=== PATIENT | male | born 1955 | race Caucasian/White ===

== ENCOUNTER → 2021-12-25 | Outpatient (CLI) | payer MEDICARE, OTHER ==
[2021-12-25 17:20] LABS: Color,BF Yellow
[2021-12-25 17:21] LABS: Appearance,BF Hazy; Nucleated Cells, Body Fluid 160 /uL; RBC, Body Fluid 990 /uL
[2021-12-25 17:42] LABS: Mononuclear WBC,Body Fluid 99 %; Polynuclear WBC,Body Fluid 1 %; Total Cells Counted,Body Fluid 100
[2021-12-25 23:33] LABS: HCT 45.1 % (39.6-50.0); HGB 15.2 g/dL (13.0-17.0); MCH 29.2 pg (27.0-32.0); MCHC 33.7 g/dL (32.0-37.0); MCV 86.6 fL (80.0-97.0); Mean Platelet Volume 11.6 fL (9.5-12.2); NRBC Per 100 WBC 0 /100 WBCS (0.0-0.0); Platelet Count 156 X 10*3/uL (140-440); RBC 5.21 X 10*6/uL (4.40-5.60); RDW 12.9 % (11.5-14.5); WBC 7.11 X 10*3/uL (4.50-10.00)
[2021-12-25 23:34] LABS: Streptolysin O Ab(ASO) 91 IU/L (0-200)
[2021-12-25 23:46] LABS: C Reactive Protein <0.30 mg/dL (0.00-0.80); Rheumatoid Factor, Qnt <10 IU/mL (0-15)
[2021-12-25 23:56] LABS: Erythrocyte Sedimentation Rate 4 mm/Hr (0-20)
[2021-12-26 02:41] LABS: Synovial Fld Crystals None Seen (None Seen)
[2021-12-26 14:18] LABS: HLA B27 NEGATIVE
== END | disposition home or self-care (01) ==
LOC: LABWHC1 16:03
PROVIDERS: ATTEND Orthopaedic Surgery
DX: M10.062 Idiopathic gout, left knee (principal)
CPT/HCPCS: 36415; 83520; 84443; 85027; 85652; 86038; 86039; 86060; 86140; 86431; 86618; 86812; 87070; 87075; 87205; 89050; 89060

== ENCOUNTER → 2022-06-11 | Outpatient (CLI) | payer OTHER, MEDICARE ==
--- NOTE | 2022-06-11 10:15 | US ---
EXAMINATION TYPE: US venous doppler duplex LE DATE OF EXAM: 06/11/2022 10:05 AM COMPARISON: NONE CLINICAL HISTORY: I80.9 PHLEBITIS AND THROMBOPHLEBITIS OF UNSP. left knee pain SIDE PERFORMED: left TECHNIQUE: The lower extremity deep venous system is examined utilizing real time linear array sonog renard with graded compression, doppler sonography and color-flow sonography. VESSELS IMAGED: Common Femoral Vein Deep Femoral Vein Greater Saphenous Vein * Femoral Vein Popliteal Vein Small Saphenous Vein * Proximal Calf Veins (* superficial vessels) Left Leg: negative for LLE dvt; results called to Vale in the office at the time of the exam. IMPRESSION: 1. Left lower extremity ultrasound negative for deep venous thrombosis.
== END | disposition home or self-care (01) ==
LOC: RADUSWWP 09:43
PROVIDERS: ATTEND Orthopaedic Surgery
DX: I80.3 Phlebitis and thrombophlebitis of lower extremities, unspecified (principal); M17.12 Unilateral primary osteoarthritis, left knee; M25.562 Pain in left knee

== ENCOUNTER 2024-09-06 07:56 | Inpatient (IN) | payer MEDICARE, OTHER ==
[2024-09-06 16:03] VITALS: BMI 36.2
[2024-09-12] MEDS ORDERED: HYDROmorphone 0.5 MG/0.5 ML SYRINGE IVP PRN ×2 (07:00→10:26)
[2024-09-12] MEDS ORDERED: fentaNYL (PF) 50 MCG/ML 2 ML AMP IV PRN (07:00)
[2024-09-12] MEDS: IV FLUID CONTINUATION 1,000 ML IV ONE ×4 (07:05→11:19)
[2024-09-12] MEDS: LIDOCAINE 1% (10MG/ML) FOR IV START INTRADERMA PRN (07:05)
[2024-09-12] MEDS: LACTATED RINGERS 1,000 ML IV SCH (07:05)
[2024-09-12] MEDS: FAMOTIDINE 20 MG/2 ML VIAL IV STA (07:20)
[2024-09-12] MEDS: ONDANSETRON 4 MG/2 ML VIAL IVP ONE (07:20)
[2024-09-12] MEDS ORDERED: LIDOCAINE 1% INJ 10MG/ML (20 ML MDV) ONE (07:26)
[2024-09-12] MEDS ORDERED: ROCURONIUM 10 MG/ML (5 ML VIAL) IV ONE (07:26)
[2024-09-12] MEDS ORDERED: SUCCINYLCHOLINE CHLORIDE 200 MG/10 ML VIAL IV ONE (07:26)
[2024-09-12] MEDS ORDERED: HYDROmorphone (PF) 1 MG/ML ONE (07:26)
[2024-09-12] MEDS ORDERED: MIDAZOLAM 2 MG/2 ML VIAL ONE (07:26)
[2024-09-12] MEDS ORDERED: fentaNYL (PF) 50 MCG/ML 2 ML AMP ONE (07:26)
[2024-09-12] MEDS ORDERED: ePHEDrine 50 MG/ML 1 ML VIAL ONE (07:26)
[2024-09-12] MEDS ORDERED: PROPOFOL 10 MG/ML 20 ML VIAL IV ONE (07:26)
[2024-09-12] MEDS ORDERED: DEXAMETHASONE SOD PHOSPHATE 10 MG/ML 1 ML VIAL ONE (07:26)
[2024-09-12] MEDS: ceFAZolin 3 GM in SODIUM CHLORIDE 0.9% 100 ML IVPB PRN (07:30)
[2024-09-12] MEDS: ceFAZolin 1,000 MG in SODIUM CHLORIDE 0.9% IRRIGATIO 1,000 ML IRRIGATION PRN (07:30)
[2024-09-12] MEDS: THROMBIN (BOVINE) 5,000 UNIT VIAL MISCELLANE ONE (08:03)
[2024-09-12] MEDS: BUPIVACAINE (PF) 0.25% 30 ML VIAL SQ ONE (08:03)
[2024-09-12] MEDS: LIDOCAINE 2%-EPI 1:100,000 20 ML VIAL SQ ONE (08:03)
--- NOTE | 2024-09-12 09:02 | XR ---
EXAMINATION TYPE: XR cervical spine 1V DATE OF EXAM: 09/12/2024 8:47 AM COMPARISON: None CLINICAL INDICATION: Male, 68 years old with history of Needle Placement; PHH, pain TECHNIQUE: XR cervical spine 1V, (1-2) views of the cervical spine FINDINGS: Surgical instrument pointing at the C4-C5 disc space support tube in place. No evidence for fracture. IMPRESSION: 1. No fracture or dislocation. 2. Surgical instrument pointing at the C4-C5 disc space [facility], , 09/12/2024 9:00 AM
[2024-09-12] MEDS ORDERED: BENZOCAINE/MENTHOL LOZENG 1 EACH LOZENGE MUCOUS MEM PRN (10:26)
[2024-09-12] MEDS ORDERED: HYDROmorphone 2 MG/ML 1 ML SYRINGE IVP PRN (10:26)
[2024-09-12] MEDS ORDERED: ONDANSETRON 4 MG/2 ML VIAL IVP PRN (10:27)
--- NOTE | 2024-09-12 10:28 | XR ---
EXAMINATION TYPE: XR cervical spine 1V DATE OF EXAM: 09/12/2024 10:20 AM COMPARISON: Same day CLINICAL INDICATION: Male, 68 years old with history of HARDWARE PLACEMENT; PHH, pain TECHNIQUE: XR cervical spine 1V, (1-2) views of the cervical spine FINDINGS: Fixation hardware at the anterior aspect of C4 on C5 visualized. Below that the shoulders obscure the view. IMPRESSION: Fixation hardware at C4-C5 anteriorly more inferiorly is obscured by the shoulders. Hardware appears intact. [facility], , 09/12/2024 10:25 AM
--- NOTE | 2024-09-12 10:32 | P.OP ---
Date of Procedure: 09/12/24 Preoperative Diagnosis: Cervical spine stenosis C4-5 C5-6 C6-7, herniated nucleus pulposus C4-5 C5-6 C6- 7, upper extreme radiculopathy, degenerative disc disease, neck pain Postoperative Diagnosis: Same Anesthesia: GETA Pathology: none sent Condition: stable Disposition: PACU Description of Procedure: BRIEF OPERATIVE NOTE Preoperative Diagnosis:Cervical spine stenosis C4-5 C5-6 C6-7, herniated nucleus pulposus C4-5 C5-6 C6-7, upper extreme radiculopathy, degenerative disc disease, neck pain Postoperative Diagnosis:Cervical spine stenosis C4-5 C5-6 C6-7, herniated nucleus pulposus C4-5 C5-6 C6-7, upper extreme radiculopathy, degenerative disc disease, neck pain Procedure: Anterior cervical decompression with discectomy and fusion C4-5 C5-6 C6-7 Placement of interbody graft C4-5 C5-6 C6-7 Application of anterior cervical plate C4-5 C5-6 C6-7 Surgeon: Dr. Benjamin Railroad Inspector: Seth ROJAS who is present throughout the entire the case persistence during positioning, dissection, exposure, visualization, and all crucial elements of the case as well as closure. Anesthesia: General anesthesia per Dr. Espinal Estimated blood loss: Approxione 100 cc Complications: None apparent Components implanted: [place] K2 M [place] anterior cervical plate system with screws and Vikos interbody allograft bone graft and 1 cc of DBX bone putty Disposition: To recovery room in good stable condition. OPERATIVE INDICATIONS The patient has had long-standing issues in their neck and upper extremities. Found to have significant stenosis and disc herniation C4-5 C5-6 C6-7 which correlated well with his neck and his upper extremity issues. He was not having any benefit despite aggressive conservative treatment over the past several years. He was having worsening symptoms. The patient has been through conservative treatment. We discussed various treatment options including surgery, and the patient wishes to proceed with surgery We discussed the risk, patient's alternatives and benefits of surgery including but not limited to, risk of bleeding risk of infection, risk of need for further surgery, risk of decreased, loss of motion, muscle function, malunion nonunion, hardware failure, nerve damage, paralysis, heart attack, and . OPERATIVE SUMMARY After discussing all the risks, patient alternatives and benefits at length, the patient elected to proceed with surgical intervention, signed informed consent, and presented for their procedure. The patient was seen and examined in the preoperative holding area and the surgical site was marked. The patient was given antibiotics and brought to the operating room. The patient was positioned on the operating room table in a supine position being careful to pad any bony prominences and pressure points. The patient was sedated and intubated by anesthesia in standard fashion. Once the airway and C- spine were stabilized the patient's arms were padded and tucked at her side, with her shoulders gently taped. The head was placed in a donut pad with the neck in good neutral alignment and position. We were careful to maintain the patient's cervical spine and good neutral alignment and position throughout. The patient was prepped and draped in a normal standard fashion. An appropriate timeout and keystone protocol performed. We were able to proceed with the surgery. The local wound area was infiltrated with local anesthetic. An incision was made transversely approximately 2-1/2 cm over the appropriate levels at C5-6. Dissection was taken down subcutaneously to the level of the platysma which was split in line with its fibers. Dissection was taken with a carotid approach, with the trachea and esophagus medial and the carotid sheath laterally. We dissected down to the anterior surface of the vertebral bodies. Intraoperative x-ray was taken which showed a marker at the appropriate level at C4-5. With the appropriate level positively confirmed, we were able to proceed with discectomy at the appropriate levels starting at C4-5 and then moving to C5-6 and then C6-7. All of the operative levels were exposed appropriately. The patient had all their twitches back, and there was no evidence of recurrent laryngeal issue. The wound was copiously irrigated and suctioned dry as had been done periodically throughout the case. At the appropriate level/levels, similarly at each level starting at C4-5 and then C5-6 and then C6-7 I established an annulotomy with an 11 blade scalpel. A discectomy was performed with a combination of pituitary rongeurs, curettes, a high-speed bur, and Kerrison rongeurs. The posterior longitudinal ligament was taken down as were any posterior osteophytes. The posterior longitudinal ligament was quite thick and there were posterior osteophytes which were all removed appropriately. This gave good central and bilateral foraminal decompression. There is no evidence of any dural tear or leak. The endplates were prepared with a high-speed bur. With the endplates in good parallel position, I was able to size for the appropriate size interbody graft. The wound was irrigated and suctioned dry the graft was prepared and malleted into position. It had good alignment and position with the anterior surface flush with the anterior surface of the vertebral bodies. This was done similarly the appropriate levels C4-5 C5-6 C6- 7. With the grafts intact, I was able to measure and contour and appropriate sized plate. The plate was positioned at the midline over the appropriate levels at C4-5-6 and 7. Screw holes were established with a hand drill and drill guide. Screws were placed in good alignment and position with excellent bony purchase. They were seated under the locking device. The construct was checked and found to be stable. Intraoperative x-ray was taken which showed good alignment and position of the implants at the appropriate levels. There was no evidence of any dural tear or leak. Good hemostasis was maintained. The wound was copiously irrigated and suctioned dry as had been done periodically throughout the case. The platysma was closed with absorbable suture. The subcutaneous tissue was closed. The subcuticular tissue was closed with absorbable suture. The wound was cleaned and dried and dressed appropriately. A soft cervical collar was placed appropriately. The patient was woken up by anesthesia, extubated, transferred back gently to their hospital bed and brought to the recovery room in good stable condition. The patient will be admitted to the hospital for appropriate postoperative care, medical management and monitoring. We will continue to follow them closely about the postoperative course.
[2024-09-12] MEDS: SODIUM CHLORIDE 0.9% 1,000 ML IV SCH (11:04)
[2024-09-12] MEDS: DEXAMETHASONE SOD PHOSPHATE 4 MG/ML 1 ML VIAL IV ONE (11:52)
[2024-09-12] MEDS: HYDROcodone/APAP 5-325MG 1 EACH TAB PO PRN (11:54)
[2024-09-12] MEDS: CYCLOBENZAPRINE 10 MG TAB PO PRN (15:47)
[2024-09-12] MEDS: ceFAZolin 3 GM in SODIUM CHLORIDE 0.9% 100 ML IVPB SCH (15:47)
[2024-09-12] MEDS: SERTRALINE 50 MG TAB PO SCH (15:47)
[2024-09-12] MEDS: PRAVASTATIN SODIUM 20 MG TAB PO SCH (20:50)
[2024-09-12] MEDS: hydrOXYzine HCL 25 MG TAB PO SCH (20:51)
[2024-09-13 01:13] VITALS: TEMP 98.6
[2024-09-13 07:14] VITALS: BP 144/77; PULSE 59; RESP 18
[2024-09-13] MEDS: MULTIVITAMINS, THERA 1 EACH TAB PO SCH (08:45)
[2024-09-13] MEDS: CHOLECALCIFEROL 25 MCG (1000 IU) TABLET PO SCH (08:45)
[2024-09-13] MEDS: ASPIRIN 81 MG PO SCH (08:45)
[2024-09-13] MEDS: lisinopriL 20 MG TAB PO SCH (08:45)
[2024-09-13] MEDS: SENNOSIDES-DOCUSATE SODIUM 1 EACH TAB PO SCH (08:46)
--- NOTE | 2024-09-13 11:40 | P.DS ---
Providers Date of admission: 09/12/24 05:59 Expected date of discharge: 09/13/24 Attending physician: Fernandez Benjamin Primary care physician: Stated None - Discharge Diagnosis(es) (1) Degenerative cervical disc Current Visit: Yes Status: Acute (2) Cervical disc herniation Current Visit: Yes Status: Acute (3) Radiculopathy affecting upper extremity Current Visit: Yes Status: Acute (4) Cervicalgia Current Visit: Yes Status: Acute (5) Status post cervical spinal fusion Current Visit: Yes Status: Acute (6) Hypertension Current Visit: Yes Status: Acute (7) Cervical stenosis of spine Current Visit: Yes Status: Acute Hospital Course: This is a pleasant 68-year-old male who presented with C4-5, C5-6, and C6-7 herniated nucleus pulposus with cervical spine stenosis with upper extremity radiculopathy, cervical degenerative disc disease, and cervicalgia who failed outpatient conservative therapy. He was admitted for a C4-5, C5-6, and C6-7 anterior cervical decompression and fusion. The patient tolerated the procedure well and did well postoperatively. Has some pain at his cervical spine which has been adequately controlled. He feels he has already had improvement of his upper extremities. He is able to hold a drink at the bedside with his right hand without significant tremor which he was unable to do prior to surgical intervention. His merchandising consultant with his right hand is strong. He feels he is ready for discharge today. Condition on day of discharge stable. Patient will be discharged home. Patient currently denies any nausea, vomiting, fever, or chills. Patient is eating and voiding freely without difficulty. Patient may shower Optifoam dressing intact. Patient may remove Optifoam dressing in 3 days and shower w ithout a dressing at that time. Patient should refrain from driving until at least after their first follow-up appointment in the office. Patient should avoid excessive neck flexion, extension, rotation, and lateral sidebending; no overhead lifting; no lifting greater than 10 pounds. MAPS has been reviewed today, 09/13/2024, with an Overall Overdose Risk Score of 160. An "Opiod Start Talking" Form has been signed and placed in the patient's chart. A prescription has been written for hydrocodone 5 mg / 325 mg, 1 tab, every 6 hours, as needed for acute pain, dispense #28. Prescription is sent to the patient's regular pharmacy per request of the patient. Patient's other medical diagnoses include hypertension. Physical Exam on day of discharge: Patient is awake, alert, and oriented 3 Vital signs stable Good chest excursion with deep inspiration and expiration Abdomen soft nontender No signs or symptoms of DVT; no calf pain Adequate range of motion of the cervical spine with adequate flexion, extension, and bilateral rotation Parachute Accessories Attacher strength, thumb strength, interosseous strength, biceps strength, triceps strength, and shoulder strength positive sustained bilaterally Soft cervical collar intact and is removed at the bedside Incision is clean, dry, and intact; no erythema, purulence, or signs of infection Optifoam dressing intact Procedures: C4-5, C5-6, and C6-7 anterior cervical decompression and fusion Patient Condition at Discharge: Stable Plan - Discharge Summary Discharge Rx Participant: No New Discharge Prescriptions: New HYDROcodone/APAP 5-325MG [[place] 5] 1 each PO Q6HR PRN #28 tab PRN Reason: Pain No Action tiZANidine [Zanaflex] 4 mg PO TID PRN PRN Reason: Pain Multivitamins, Thera [Multivitamin (formulary)] 1 tab PO DAILY HYDROcodone/APAP 5-325MG [[place] 5-325] 1 tab PO TID PRN PRN Reason: Pain Cholecalciferol [Vitamin D3 (25 Mcg = 1000 Iu)] 25 mcg PO DAILY hydrOXYzine HCL [Atarax] 50 mg PO HS Aspirin [Adult Low Dose Aspirin EC] 81 mg PO DAILY lisinopriL [Zestril] 20 mg PO QAM Pravastatin Sodium [Pravachol] 20 mg PO HS Sertraline HCl [Zoloft] 50 mg PO W/SUPPER Discharge Medication List Aspirin [Adult Low Dose Aspirin EC] 81 mg PO DAILY 09/06/24 [History] Cholecalciferol [Vitamin D3 (25 Mcg = 1000 Iu)] 25 mcg PO DAILY 09/06/24 [History] HYDROcodone/APAP 5-325MG [[place] 5-325] 1 tab PO TID PRN 09/06/24 [History] Multivitamins, Thera [Multivitamin (formulary)] 1 tab PO DAILY 09/06/24 [History] Pravastatin Sodium [Pravachol] 20 mg PO HS 09/06/24 [History] Sertraline HCl [Zoloft] 50 mg PO W/SUPPER 09/06/24 [History] hydrOXYzine HCL [Atarax] 50 mg PO HS 09/06/24 [History] lisinopriL [Zestril] 20 mg PO QAM 09/06/24 [History] tiZANidine [Zanaflex] 4 mg PO TID PRN 09/06/24 [History] HYDROcodone/APAP 5-325MG [[place] 5] 1 each PO Q6HR PRN #28 tab 09/13/24 [Rx] Follow up Appointment(s)/Referral(s): Mick Moreland, IAIN [PHYSICIAN READINESS PARAPROFESSIONAL] - 2 Weeks (Patient may follow-up with Mick Moreland PA-C or Dr. Bulmaro Benjamin at [facility] as already scheduled following discharge. ) Activity/Diet/Wound Care/Special Instructions: 1. Patient may shower with Optifoam dressing intact. 2. Patient may remove Optifoam dressing in 3 days and shower without a dressing at that time. 3. Patient may wear soft cervical collar for comfort support as needed. 4. Patient should refrain from driving until at least after their first follow- up appointment in the office. 5. Patient should avoid excessive cervical flexion, extension, and side bending; avoid overhead lifting; no lifting greater than 10 pounds 6. Take medications as prescribed 7. Patient should avoid anti-inflammatory medications over the next 6 weeks postoperatively 8. Do not soak in tub Discharge Disposition: HOME SELF-CARE
== END 2024-09-13 12:45 | disposition home or self-care (01) | DRG 473 ==
LOC: 2ORMAIN 09-12 05:59 → EDSTATUS 09-12 07:30 → 4SSUR 09-12 10:58
PROVIDERS: ADMIT Orthopaedic Surgery Orthopaedic Surgery of the Spine; ATTEND Orthopaedic Surgery Orthopaedic Surgery of the Spine
PROC: 0RB30ZZ Excision of Cervical Vertebral Disc, Open Approach (ICD-10-PCS; principal; 2024-09-12 07:30)
PROC: 01N10ZZ Release Cervical Nerve, Open Approach (ICD-10-PCS; principal; 2024-09-12 07:30)
PROC: 0RG20K0 Fusion of 2 or more Cervical Vertebral Joints with Nonautologous Tissue Substitute, Anterior Approach, Anterior Column, Open Approach (ICD-10-PCS; principal; 2024-09-12 07:30)
DX: M50.121 Cervical disc disorder at C4-C5 level with radiculopathy (principal); E66.9 Obesity, unspecified; F32.A Depression, unspecified; I10 Essential (primary) hypertension; Z68.36 Body mass index [BMI] 36.0-36.9, adult; E78.5 Hyperlipidemia, unspecified; M48.02 Spinal stenosis, cervical region; M50.11 Cervical disc disorder with radiculopathy, high cervical region; Z79.82 Long term (current) use of aspirin; Z79.899 Other long term (current) drug therapy; Z85.820 Personal history of malignant melanoma of skin; Z98.1 Arthrodesis status; Z86.73 Personal history of transient ischemic attack (TIA), and cerebral infarction without residual deficits
CPT/HCPCS: 72020; 86850; 86900; 86901